=== PATIENT | female | born 1985 | race Caucasian/White ===

== ENCOUNTER 2020-07-06 21:51 | Inpatient (IN) | payer OTHER ==
[2020-07-06 22:19] LABS: EPITHELIAL CELLS FEW /hpf
[2020-07-06] MEDS ORDERED: ONDANSETRON 4 MG/2 ML VIAL IVPUSH ONE (22:24)
[2020-07-06] MEDS ORDERED: morphine CARPU-JECT 4 MG/1 ML DISP.SYRIN IVPUSH ONE (22:24)
[2020-07-06] MEDS ORDERED: SODIUM CHLORIDE 0.9% 500 ML INFUS.BAG IV ONE (22:48)
[2020-07-06] MEDS ORDERED: morphine SULFATE 4 MG/ML VIAL ONE (23:11)
[2020-07-06] MEDS ORDERED: ONDANSETRON 4 MG/2 ML VIAL ONE (23:12)
[2020-07-06 23:19] LABS: BASO % 0.8 % (0-2.0); EOS % 4.4 % (0-4.5); HEMATOCRIT 39.1 % (32.4-45.2); HEMOGLOBIN 13.1 GM/dl (10.7-15.3); LYMPH % 26.9 % (8-40); MCH 31.2 pg (25.7-33.7); MCHC 33.6 g/dl (32.0-36.0); MEAN CELL VOLUME 92.7 fl (80-96); MEAN PLT VOLUME 8.8 fl (7.5-11.1); NEUT % 61.9 % (42.8-82.8); PLATELET COUNT 292 K/MM3 (134-434); RBC 4.22 M/mm3 (3.60-5.2); RDW 12.1 % (11.6-15.6); WHITE BLOOD COUNT 8.9 K/mm3 (4.0-10.8)
[2020-07-06 23:29] LABS: INR 1.12 (0.82-1.09); PROTHROMBIN TIME (PATIENT) 12.4 SEC (10.2-13.0)
[2020-07-06 23:34] LABS: ALBUMIN 4.5 g/dl (3.4-5.0); BILIRUBIN,TOTAL 0.7 mg/dl (0.2-1); CREATININE 0.7 mg/dl (0.55-1.3); MAGNESIUM 2.1 mg/dL (1.8-2.4); TOT PROT 7.3 g/dl (6.4-8.2)
[2020-07-06] MEDS ORDERED: ACETAMINOPHEN 1000 MG/100 ML VIAL (NON FORMULARY) IVPB ONE (23:51)
[2020-07-07] MEDS ORDERED: LORazepam 2 MG TABLET PO ONE (02:21)
[2020-07-07] MEDS ORDERED: LORazepam 0.5 MG TABLET ONE (02:24)
[2020-07-07] MEDS ORDERED: DEXTROSE 5%-NORMAL SALINE 1,000 ML IV SCH ×2 (03:00→13:15)
[2020-07-07] MEDS ORDERED: ONDANSETRON 4 MG/2 ML VIAL IVPUSH ONE (08:44)
[2020-07-07] MEDS ORDERED: ACETAMINOPHEN 1000 MG/100 ML VIAL (NON FORMULARY) IVPB ONE (08:44)
[2020-07-07] MEDS ORDERED: ONDANSETRON 4 MG/2 ML VIAL ONE (08:50)
[2020-07-07] MEDS ORDERED: ACETAMINOPHEN INJECTION 100 ML IVPB ONE (08:50)
[2020-07-07 15:55] VITALS: BP 118/69; PULSE 82; TEMP 97.9
== END 2020-07-07 18:30 | disposition home or self-care (01) | DRG 566 ==
LOC: FER 21:51 → J5S 07-07 02:56
PROVIDERS: ADMIT Internal Medicine; ATTEND Internal Medicine
DX: O26.91 Pregnancy related conditions, unspecified, first trimester (principal); Z3A.01 Less than 8 weeks gestation of pregnancy; R10.31 Right lower quadrant pain; N83.9 Noninflammatory disorder of ovary, fallopian tube and broad ligament, unspecified; N28.1 Cyst of kidney, acquired; K59.09 Other constipation
CPT/HCPCS: 36415; 76830-TC; 80053; 81003; 81015; 81025; 83735; 84702; 85025; 85610; 86850; 86900; 86901; 87086; 99285-25; C9803; J0131; U0003; U0005

== ENCOUNTER 2020-07-08 17:34 | Emergency (ER) | payer OTHER ==
[2020-07-08 17:42] VITALS: BP 112/80; PULSE 96; TEMP 97; BMI 19.8
== END 2020-07-08 19:00 | disposition home or self-care (01) ==
LOC: JERFT 17:34
DX: O03.9 Complete or unspecified spontaneous abortion without complication (principal)
CPT/HCPCS: 36415; 84702; 99283-25